=== PATIENT | female | born 1970 | race Caucasian/White ===

== ENCOUNTER → 2023-04-15 | Day surgery (SDC) | payer MEDICAID ==
[~2023-04-15] VITALS: Ht 162.6 cm; Wt 44.5 kg
[~2023-04-15] MED LIST: ATOR20TA65 PO; BUPIVACAINE HCL/PF 0.5% (5MG/ML) 10ML ONE; CEFAZOLIN SODIUM 1000MG/VIAL ONE; EMPA25TA PO; FENTANYL CITRATE/PF 50MCG/ML 2ML VIAL IV PRN; FENTANYL CITRATE/PF 50MCG/ML 2ML VIAL ONE; GLIM4TAB36 PO; HYDROMORPHONE HCL/PF 2MG/ML CPJ IV PRN; KETOROLAC 60MG/2ML VIAL IM ONE; LISI-186 PO; MEPERIDINE HCL/PF 25MG/ML CPJ IV PRN; METF-416 PO; MIDAZOLAM HCL 2 MG/2 ML VIAL ONE; ONDANSETRON HCL 4MG/2ML INJ IV PRN; ONDANSETRON HCL 4MG/2ML INJ ONE; PROPOFOL 200MG/20ML VIAL IV ONE; SKIN ADHESIVE 0.7 GM EA TOP ONE; SODIUM CHLORIDE 0.9% 100 ML IV ONE; SUCCINYLCHOLINE CHLORIDE 200MG/10ML IV ONE
== END | disposition home or self-care (01) ==
LOC: OR 07:06
PROVIDERS: ATTEND Surgery
DX: K41.90 Unilateral femoral hernia, without obstruction or gangrene, not specified as recurrent (principal); E11.9 Type 2 diabetes mellitus without complications; I10 Essential (primary) hypertension; Z79.84 Long term (current) use of oral hypoglycemic drugs; Z79.899 Other long term (current) drug therapy; Z98.890 Other specified postprocedural states
CPT/HCPCS: 49550; 82962; J3010; J3490; J0690; J1885; J2250; J2405; J2704; J0330; C1781